=== PATIENT | female | born 1980 | race Caucasian/White ===

== ENCOUNTER → 2021-06-11 | Emergency (ER) | payer OTHER ==
[~2021-06-11] VITALS: Ht 160 cm; Wt 85.7 kg
== END | disposition home or self-care (01) ==
LOC: ER 16:24
DX: K81.9 Cholecystitis, unspecified (principal); R10.11 Right upper quadrant pain

== ENCOUNTER 2021-06-12 05:47 | Inpatient (IN) | payer OTHER ==
[~2021-06-12] VITALS: Ht 160 cm; Wt 81.6 kg
== END 2021-06-13 17:37 | disposition left against medical advice (07) | DRG 446 ==
LOC: ER 05:47 → SURH 14:43
PROVIDERS: ADMIT Surgery; ATTEND Surgery
DX: K80.00 Calculus of gallbladder with acute cholecystitis without obstruction (principal); Z20.822 Contact with and (suspected) exposure to COVID-19